=== PATIENT | female | born 1985 | race Caucasian/White ===

== ENCOUNTER 2024-11-14 14:00 | Inpatient (IN) | payer BC ==
[2024-11-14] MEDS ORDERED: TERBUTALINE 1 MG/ML VIAL SQ PRN (15:00)
[2024-11-14] MEDS ORDERED: TRANEXAMIC 1,000 MG/100ML-NACL 1,000 MG in EMPTY BAG 1 BAG IV PRN (15:00)
[2024-11-14] MEDS ORDERED: METHYLERGONOVINE 0.2 MG/ML 1 ML AMP IM PRN (15:00)
[2024-11-14] MEDS ORDERED: miSOPROStoL 200 MCG TAB RECTAL PRN (15:00)
[2024-11-14] MEDS ORDERED: miSOPROStoL 200 MCG TAB PO PRN (15:00)
[2024-11-14] MEDS ORDERED: CARBOPROST TROMETHAMINE 250 MCG/ML 1 ML AMP IM PRN (15:00)
[2024-11-14] MEDS: LACTATED RINGERS 1,000 ML IV SCH (15:00)
[2024-11-14] MEDS ORDERED: LIDOCAINE 0.5% (PF) 5 MG/ML (50 ML SDV) SQ PRN (15:00)
[2024-11-14] MEDS ORDERED: OXYTOCIN 10 UNIT/ML 1 ML VIAL IM PRN (15:00)
[2024-11-14 15:27] LABS: Basophils # (A) 0.01 10*3/uL (0.00-0.10); Basophils % (A) 0.1 %; Eosinophils # (A) 0.04 10*3/uL (0.04-0.35); Eosinophils % (A) 0.4 %; HCT 33.9 % (37.2-46.3); HGB 11.8 g/dL (12.0-15.0); Lymphocytes # (A) 1.44 10*3/uL (0.90-5.00); Lymphocytes % (A) 15.7 %; MCH 32.8 pg (27.0-32.0); MCHC 34.8 g/dL (32.0-37.0); MCV 94.2 fL (80.0-97.0); Mean Platelet Volume 10.9 fL (9.5-12.2); Monocytes # (A) 0.73 10*3/uL (0.20-1.00); Neutrophils # (A) 6.92 10*3/uL (1.80-7.70); Neutrophils % (A) 75.4 %; Platelet Count 257 10*3/uL (140-440); RDW 11.5 % (11.5-14.5); WBC 9.18 10*3/uL (4.50-10.00)
[2024-11-14] MEDS ORDERED: NALBUPHINE 10 MG/ML (10 ML MDV) IV PRN (18:26)
[2024-11-15] MEDS: OXYTOCIN 30 UNITS/500 ML NS 30 UNIT in SALINE 1 500ML.BAG IV SCH (02:00)
[2024-11-15] MEDS ORDERED: fentaNYL (PF) 50 MCG/ML 5 ML AMP ONE (10:36)
[2024-11-15] MEDS ORDERED: ROPIVACAINE 5 MG/ML 30 ML VIAL ONE (10:36)
[2024-11-15] MEDS ORDERED: SODIUM CHLORIDE 0.9% 250 ML BAG ONE (10:36)
[2024-11-15] MEDS: CITRIC ACID-SODIUM CITRATE 15 ML CUP PO ONE (16:19)
[2024-11-15] MEDS ORDERED: LANOLIN CREAM 1 GM TUBE TOPICAL PRN (19:52)
[2024-11-15] MEDS ORDERED: HYDROCORTISONE 2.5% RECTAL CREAM 30 GM TUBE RECTAL PRN (19:52)
[2024-11-15] MEDS ORDERED: diphenhydrAMINE 50 MG/ML 1 ML VIAL IVP PRN ×2 (19:52)
[2024-11-15] MEDS ORDERED: BENZOCAINE/MENTHOL SPRAY 1 GM/SPRAY AEROSOL TOPICAL PRN (19:52)
[2024-11-15] MEDS ORDERED: diphenhydrAMINE 25 MG CAP PO PRN (19:52)
[2024-11-15] MEDS ORDERED: SIMETHICONE 80 MG CHEWABLE PO PRN (19:52)
[2024-11-15] MEDS ORDERED: ZOLPIDEM 5 MG TAB PO PRN (19:52)
[2024-11-15] MEDS ORDERED: diphenhydrAMINE 50 MG CAP PO PRN (19:52)
--- NOTE | 2024-11-15 19:56 | P.PROBDLV ---
Vaginal Delivery Note - . Vaginal Delivery Note: Date of service 11/15/2024 Findings viable female delivered at 1926, weight of 6 pounds 10 ounces This is a 39-year-old 1 para 0 at 39 weeks of that presents to labor and delivery for induction of labor. Patient was admitted through the evening but was noted to be asmita on her own. 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 Patient underwent amniotomy and clear fluid was obtained. Patient made good progress through labor becoming uncomfortable and requesting epidural. Epidural was placed without difficulty by the anesthesia department. Patient made good progress toward complete dilation. Once completely dilated patient began pushing and had a normal spontaneous vaginal delivery of a viable female infant at 1926, weight of 6 pounds 10 ounces, Apgars of 5 and 8. After 2-minute delay the umbilical cord was doubly clamped and cut, placenta was delivered spontaneously intact with a three-vessel cord being noted. Uterus was noted to be firm and below the umbilicus. A red rubber catheter was used to drain the bladder of 200 cc of clear yellow urine. Upon inspection of the patient's vaginal vault a second-degree midline laceration was appreciated and repaired in the usual fashion with 3-0 Rapide after instillation of lidocaine. Hemostasis was noted after closure. All counts were noted correct x 2 at the end of the delivery. Patient and infant tolerated delivery well and are resting comfortably.
[2024-11-15] MEDS: DINOPROSTONE 10 MG INSERT.ER VAGINAL ONE (20:32)
[2024-11-15] MEDS: SENNOSIDES-DOCUSATE SODIUM 1 EACH TAB PO SCH (22:35)
[2024-11-16] MEDS: ACETAMINOPHEN TAB 500 MG TAB PO SCH (00:11)
[2024-11-16] MEDS: IBUPROFEN 800 MG TAB PO SCH (00:15)
--- NOTE | 2024-11-16 11:45 | P.HPOB ---
History of Present Illness H&P Date: 11/14/24 Chief Complaint: IUP at 39 weeks This is a 39-year-old 1 para 0 at 39 weeks that presents to labor and delivery for elective induction of labor. EDC of 11/21 based on last menstrual period and consistent with first trimester ultrasound. Titus has been receiving routine care which has been essentially uncomplicated. Patient notes good movement denies contractions or vaginal bleeding/loss of fluid. On blood work this patient is a blood type of O+, rubella status nonimmune, hepatitis B surface engine negative, HIV negative, RPR nonreactive, grew beta strep culture negative. Review of Systems Constitutional: Denies chills, Denies fatigue, Denies fever Ears, nose, mouth and throat: Denies headache Cardiovascular: Reports leg edema Respiratory: Denies dyspnea Gastrointestinal: Denies constipation, Denies diarrhea, Denies nausea, Denies vomiting Genitourinary: Reports Past Medical History Past Medical History: No Reported History History of Any Multi-Drug Resistant Organisms: None Reported Past Surgical History: Adenoidectomy Additional Past Surgical History / Comment(s): childhood Past Anesthesia/Blood Transfusion Reactions: No Reported Reaction Past Psychological History: No Psychological Hx Reported Smoking Status: Never smoker Past Alcohol Use History: None Reported Past Drug Use History: None Reported - Past Family History Father Family Medical History: CVA/TIA Medications and Allergies Home Medications Medication Instructions Recorded Confirmed Type Aspirin 81 mg PO DAILY 11/14/24 11/14/24 History Allergies Allergy/AdvReac Type Severity Reaction Status Date / Time sulfamethoxazole Allergy Rash/Hives Verified 11/14/24 14:49 [From Bactrim] trimethoprim [From Bactrim] Allergy Rash/Hives Verified 11/14/24 14:49 Exam Osteopathic Statement: *. No significant issues noted on an osteopathic structural exam other than those noted in the History and Physical/Consult. Vital Signs Temp Pulse Resp BP Pulse Ox 11/14/24 14:52 97.3 F L 96 16 136/83 99 Intake and Output 11/14/24 11/14/24 11/14/24 06:59 14:59 22:59 Other: Weight 77.111 kg Targeted physical exam is done on this date in general is well-nourished well-developed female in no acute distress, breathing is nonlabored, heart has a regular rate and rhythm, abdomen is gravid, on cervical exam she is 1/70/-3 station, heart tones are noted to be category 1, asmita every 1 to 2 minutes comfortable not feeling them Results Result Diagrams: 11/14/24 14:20 Abnormal Lab Results - Last 24 Hours (Table) 11/14/24 Range/Units 14:20 RBC 3.60 L (4.10-5.20) 10*6/uL Hgb 11.8 L (12.0-15.0) g/dL Hct 33.9 L (37.2-46.3) % MCH 32.8 H (27.0-32.0) pg Assessment and Plan (1) Term Current Visit: Yes Status: Acute Code(s): Z34.90 - ENCNTR FOR SUPRVSN OF NORMAL , UNSP, UNSP TRIMESTER SNOMED Code(s): 92772178 Plan: Admit to labor and delivery Will monitor contractions consider Cervidil versus Pitocin given contraction pattern. IV fluids, LR at 125 Options for analgesia are discussed including Nubain, nitrous, epidural. Patient does wish epidural when appropriate Clear liquids as tolerated
--- NOTE | 2024-11-16 11:45 | P.PNOBGVD ---
Subjective - Subjective Principal diagnosis: day #1, status post spontaneous vaginal delivery Interval history: Patient is doing well . She is ambulating and voiding without difficulty. She is tolerating a regular diet without nausea or vomiting. She states her pain is well-controlled with oral ibuprofen. Lochia is noted to be moderate. Patient reports: Reports appetite normal, Reports voiding normally, Reports pain well controlled, Reports ambulating normally [place]: doing well Objective - Latest Vital Signs Latest vital signs: Vital Signs Temp Pulse Pulse Resp BP Pulse Ox 11/16/24 11:04 98.1 F 61 16 109/61 11/16/24 04:00 97.7 F 71 18 117/77 100 11/16/24 00:00 97.8 F 72 16 102/61 97 11/15/24 21:50 98.1 F 106 H 16 117/65 11/15/24 21:35 100 16 125/71 11/15/24 21:20 97 16 134/69 11/15/24 21:05 103 H 16 133/69 11/15/24 20:50 103 H 16 124/59 11/15/24 20:35 93 16 121/67 11/15/24 20:20 93 16 122/67 11/15/24 20:05 98.3 F 90 16 116/67 11/15/24 19:50 99 16 117/72 Intake and Output 11/15/24 11/16/24 11/16/24 22:59 06:59 14:59 Intake Total 561.442 0857.867 Output Total 191 Balance 11.133 1297.867 Intake: Intake, IV Titration 202.133 297.867 Amount Oxytocin 30 Units/500 ml 202.133 297.867 Ns 30 unit In Saline 1 500ml.bag @ Per Protocol IV .Q0M [facility] Rx#:[id number] Oral 1000 Output: Output, Quantitative 191 Blood Loss Other: # Voids 1 2 1 - Exam Extremities: Present: normal, edema Abdomen: Present: normal appearance, soft Uterus: Present: normal, firm Assessment and Plan (1) Term Current Visit: Yes Status: Acute Code(s): Z34.90 - ENCNTR FOR SUPRVSN OF NORMAL , UNSP, UNSP TRIMESTER SNOMED Code(s): 84825722 (2) Status post normal vaginal delivery Current Visit: Yes Status: Acute Code(s): RIY3765 - SNOMED Code(s): 171962154 (3) Obstetrical laceration, second degree Current Visit: Yes Status: Acute Code(s): O70.1 - SECOND DEGREE PERINEAL LACERATION DURING DELIVERY SNOMED Code(s): 1363522 Plan: Patient is doing well . Continue routine care Anticipate discharge home tomorrow
[2024-11-17 03:32] VITALS: RESP 16
[2024-11-17 08:32] VITALS: BP 110/75; PULSE 66; TEMP 98
--- NOTE | 2024-11-18 20:49 | P.DS ---
Providers Date of admission: 11/14/24 14:00 Expected date of discharge: 11/17/24 Attending physician: Felipa Fountain Primary care physician: Stated None - Discharge Diagnosis(es) (1) Term Status: Acute (2) Obstetrical laceration, second degree Status: Acute (3) Status post normal vaginal delivery Status: Acute Hospital Course: This is a 39-year-old 1 now para 1 that presented to labor and delivery at 39 weeks for induction of labor. Patient had an estimated due date of 11/21 based on last menstrual period consistent with first trimester ultrasound. Patient had been receiving routine care which had been essentially uncomplicated. For full details of this patient please see the dictated history and physical. Patient was admitted to labor and delivery and noted to be asmita every 2 to 4 minutes. Patient was observed through the night no cervical change was appreciated therefore Pitocin augmentation of labor was begun. Patient underwent amniotomy and clear fluid was obtained. Patient made good progress to labor becoming uncomfortable and requesting epidural. Epidural was placed without difficulty by the anesthesia department. Patient progressed to complete began pushing and had a normal spontaneous vaginal delivery of a viable female infant at 1926 on 11/15, weight of 6 pounds 10 ounces. A second- degree midline laceration was appreciated after delivery and repaired in the usual fashion with 3-0 Rapide. Patient's course has been uneventful. This day #2 she is ambulating and voiding without difficulty. She is tolerating a regular diet without nausea or vomiting. States her pain is well-controlled. She denies con cerns. She would like discharge home later today. Patient Condition at Discharge: Good Plan - Discharge Summary New Discharge Prescriptions: No Action Aspirin 81 mg PO DAILY Discharge Medication List Aspirin 81 mg PO DAILY 11/14/24 [History] Discharge Disposition: HOME SELF-CARE
== END 2024-11-17 11:22 | disposition home or self-care (01) | DRG 807 ==
LOC: 4FBP 14:00
PROVIDERS: ADMIT Obstetrics & Gynecology Obstetrics; ATTEND Obstetrics & Gynecology Obstetrics
PROC: 10E0XZZ Delivery of Products of Conception, External Approach (ICD-10-PCS; principal; 2024-11-15)
PROC: 0KQM0ZZ Repair Perineum Muscle, Open Approach (ICD-10-PCS; 2024-11-15)
PROC: 10907ZC Drainage of Amniotic Fluid, Therapeutic from Products of Conception, Via Natural or Artificial Opening (ICD-10-PCS; 2024-11-15)
DX: O70.1 Second degree perineal laceration during delivery (principal); Z37.0 Single live birth; Z28.21 Immunization not carried out because of patient refusal; Z3A.39 39 weeks gestation of pregnancy; Z79.82 Long term (current) use of aspirin; Z88.2 Allergy status to sulfonamides
CPT/HCPCS: 85025; 86850; 86900; 86901